=== PATIENT | female | born 1955 | race Two or more races ===

== ENCOUNTER 2024-10-03 02:08 | Emergency (ER) | payer OTHER ==
[~2024-10-03] VITALS: Ht 162.6 cm; Wt 55.0 kg
[2024-10-03 02:20] VITALS: PULSE 69; RESP 13; O2SAT 97
--- NOTE | 2024-10-03 02:39 | ED.PDOC ---
Back pain HPI HPI Comments PT BIBA S/P FALL INJURY TO RT ARM WHILE USING THE RESTROOM THIS MORNING. PT RECENTLY FELL AND FX HER LEFT LEG. NOTEABLE DEFORMITY TO RIGHT ARM, PULSES PRESENT, BRISK CAP REFILL. PT A&OX3, WHICH IS HER BASELINE, ALL VSS, RR EVEN AND UNLABORED ON RA Chief Complaint: Fall Injury Time Seen by MD: 02:14 Reviewed Notes: Nurses Notes, Laserist Notes, Medications, Allergies Allergies: Coded Allergies: Prednisone (Verified Allergy, Unknown, 10/03/24) Information Source: Patient Mode of Arrival: EMS Past Medical History PAST MEDICAL HISTORY: Denies Surgical History: Denies all surgeries ALMOND GRINDER History: No Pertinent ALMOND GRINDER History Family History Family History: Reviewed,noncontributory to illness Social History Smoker: Non-Smoker Alcohol: Denies ETOH Use Drugs: Denies Drug Use Constitutional: denies: chills, diaphoresis, fatigue, fever, malaise, sweats, weakness, others EENTM: denies: blurred vision, double vision, ear bleeding, ear discharge, ear drainage, ear pain, ear ringing, eye pain, eye redness, hearing loss, mouth pain, mouth swelling, nasal discharge, nose bleeding, nose congestion, nose pain, photophobia, tearing, throat pain, throat swelling, voice changes, others Respiratory: denies: cough, hemoptysis, orthopnea, SOB at rest, shortness of breath, SOB with excertion, stridor, wheezing, others Cardiovascular: denies: chest pain, dizzy spells, diaphoresis, Dyspnea on exertion, edema, irregular heart beat, left arm pain, lightheadedness, palpitations, PND, syncope, others Gastrointestinal: denies: abdomen distended, abdominal pain, blood streaked bowels, constipated, diarrhea, dysphagia, difficulty swallowing, hematemesis, melena, nausea, poor appetite, poor fluid intake, rectal bleeding, rectal pain, vomiting, others Genitourinary: denies: abnormal vagina bleeding, burning, dyspareunia, dysuria, flank pain, frequency, hematuria, incontinence, pain, , vagina discharge, urgency, others Neurological: denies: dizziness, fainting, headache, left sided numbness, left sided weakness, numbness, paresthesia, pre-existing deficit, right sided numbness, right sided weakness, seizure, speech problems, tingling, tremors, weakness, others Musculoskeletal: reports: others (Right arm pain); denies: back pain, gout, joint pain, joint swelling, muscle pain, muscle stiffness, neck pain Integumetry: denies: bruises, change in color, change in hair/nails, dryness, laceration, lesions, lumps, rash, wounds, others Allergic/Immunocompromised: denies: Difficulty Healing, Frequent Infections, Hives, Itching, others Hematologic/Lymphatic: denies: anemia, blood clots, easy bleeding, easy bruising, swollen glands, others Endocrine: denies: excessive hunger, excessive sweating, excessive thirst, excessive urination, flushing, intolerance to cold, intolerance to heat, unexplained weight gain, unexplained weight loss, others Psychiatric: denies: anxiety, bipolar disorder, depression, hopeless, panic disorder, schizophrenia, sleepless, suicidal, others Physical Exam General Appearance: No Apparent Distress, Normal HEENT: Normal ENT Inspection, Pharynx Normal, TMs Normal Neck: Full Range of Motion, Non-Tender Respiratory: Chest Non-Tender, Lungs Clear, No Respiratory Distress, Normal Breath Sounds Cardiovascular: No Edema, No JVD, No Murmur, No Gallop, Normal Peripheral Pulses, Regular Rate/Rhythm Breast Exam: Deferred Gastrointestinal: No Organomegaly, Non Tender, No Pulsatile Mass, Normal Bowel Sounds, Soft Genitalia: Deferred Pelvic: Deferred Rectal: Deferred Extremities: Normal capillary refill, Normal inspection, Normal range of motion, Non-tender, No pedal edema Musculoskeletal : Location: Right Extremity Location: Arm (Moderate tenderness palpated over right forearm splint in place strength sensory motion intact positive radial pulse) Apperance: Normal Neurologic: Alert, No Motor Deficits, Normal Affect, Normal Mood, No Sensory Deficits Cerebellar Function: Normal Reflexes: Normal Skin: Dry, Normal Color, Warm Lymphatic: No Adenopathy Was a procedure done? Was a procedure done?: No Back Pain Differential Dx Differential Diagnosis: Fracture, Musculoskeletal Pain, Strain X-Ray, Labs, Meds, VS Vital Signs Date Time Temp Pulse Resp B/P (MAP) Pulse Ox O2 Delivery O2 Flow Rate FiO2 10/03/24 04:24 73 15 125/65 10/03/24 02:20 98.4 69 13 147/62 (90) 97 98.4 10/03/24 02:20 69 13 97 Room Air* 0 21 10/03/24 02:15 98.1 66 18 136/81 (99) 96 98.1 Lab Test 10/03/24 04:10 10/03/24 03:30 Range/Units Urine Color Yellow Yellow Urine Clarity Turbid H Clear Urine pH 5.5 5.0-9.0 Urine Specific [place] 1.024 1.001-1.035 Urine Protein Negative Negative Urine Ketones Negative Negative Urine Blood Negative Negative /uL Urine Nitrite 2+ H Negative Urine Bilirubin Negative Negative Urine Urobilinogen Normal Negative mg/dL Urine Leukocyte Esterase Trace Negative /uL Urine RBC 1 0 - 4 /hpf Urine Microscopic WBC 12 H 0-5 /HPF Urine Squamous Epithelial Cells Mod <5 /hpf Urine Bacteria Few H None Seen /hpf Urine Glucose Normal Normal mg/dL White Blood Count 5.6 4.4-10.8 10^3/uL Red Blood Count 3.76 L 4.0-5.20 10^6/uL Hemoglobin 12.1 L 12.2-16.2 g/dL Hematocrit 34.3 L 36.0-46.0 % Mean Corpuscular Volume 91.0 80.0-100.0 fL Mean Corpuscular Hemoglobin 32.1 H 28.0-32.0 pg Mean Corpuscular Hemoglobin Concent 35.2 32.0-36.0 g/dL Red Cell Distribution Width 13.9 11.8-14.3 % Platelet Count 129 L 140-450 10^3/uL Mean Platelet Volume 5.9 L 6.9-10.8 fL Neutrophils (%) (Auto) 72.2 37.0-80.0 % Lymphocytes (%) (Auto) 16.5 10.0-50.0 % Monocytes (%) (Auto) 10.3 0.0-12.0 % Eosinophils (%) (Auto) 0.8 0.0-7.0 % Basophils (%) (Auto) 0.2 0.0-2.0 % Neutrophils # (Auto) 4.1 1.6-8.6 10 ^3/uL Lymphocytes # (Auto) 0.9 0.4-5.4 10 ^3/uL Monocytes # (Auto) 0.6 0-1.3 10 ^3/uL Eosinophils # (Auto) 0 0-0.8 10 ^3/uL Basophils # (Auto) 0 0-0.2 10 ^3/uL Nucleated Red Blood Cells 0.0 % Sodium Level 147 H 136-145 mmol/L Potassium Level 3.7 3.5-5.1 mmol/L Chloride Level 106 98-107 mmol/L Carbon Dioxide Level 31 20-31 mmol/L Anion Gap 10 5-15 Blood Urea Nitrogen 16 9-23 mg/dL Creatinine 0.78 0.550-1.02 mg/dL Glomerular Filtration Rate Calc 82 >90 mL/min BUN/Creatinine Ratio 20.5 H 10.0-20.0 Serum Glucose 122 H 74-106 mg/dL Calcium Level 9.9 8.7-10.4 mg/dL Total Bilirubin 0.2 0.2-1.0 mg/dL Aspartate Amino Transferase (AST) 12 <34 U/L Alanine Aminotransferase (ALT) < 9 7-40 U/L Alkaline Phosphatase 39 L 46-116 U/L Total Protein 5.8 5.7-8.2 g/dL Albumin 3.7 3.2-4.8 g/dL Current Medications Medications (Trade) Dose Ordered Sig/Anna Route Start Time Stop Time Status Last Admin Acetaminophen/ Hydrocodone Bitart ([place] 5/325MG Tab) 1 tab ONCE ONCE PO 10/03/24 03:00 10/03/24 03:01 DC 10/03/24 02:56 Morphine Sulfate 2 mg ONCE ONCE IV 10/03/24 04:30 10/03/24 04:31 DC 10/03/24 04:24 Ondansetron HCl (Zofran) 4 mg ONCE ONCE IV 10/03/24 04:30 10/03/24 04:31 DC 10/03/24 04:23 X-Ray, Labs, Meds, VS Comment IMAGING: X-RAY RIGHT HUMERUS FINDINGS/IMPRESSION: : Severely displaced partially overriding comminuted fracture of the proximal humeral diaphysis. There is lateral displacement by 1 full shaft width and approximately 16 degrees medial angulation. Approximately 3.2 cm overlap of fracture fragments. LABS: CBC, CMP, UA pending MEDICATIONS: [place] 5 mg p.o. Morphine 2 mg IV push PLAN: Will admit for severely displaced comminuted fracture of the proximal humeral diaphysis, admit for ortho surgical consult, pain management. Time of 1ST Reevaluation: 02:14 Reevaluation 1ST: Unchanged Time of 2ND Reevaluation: 04:30 Reevaluation 2ND: Improved Patient Education/Counseling: Diagnosis, Treatment, Prognosis, Need For Follow Up Family Education/Counseling: Diagnosis, Treatment, Prognosis, Need For Follow Up SEPSIS Sepsis Screen Date sepsis recognized/suspect: Oct 03, 2024 Time Sepsis recognized/suspect: 214 Recent Procedure: No On Antibiotic Therapy: No Respiratory Rate >20: No Heart Rate >90: No Temp<36 C (96.8 F) or >38.3 C: No SBP <90 or MAP <65 mmHG: No New Acute Mental Status Change: No Is the patient on CPAP, BIPAP,: No Physician Orders R Forearm Xray (10/03/24 02:14) R Humerus Xray (10/03/24 02:14) * Orthopedic Consult (10/03/24 04:00) Splints (10/03/24 ) Vital Signs Date Time Temp Pulse Resp B/P (MAP) Pulse Ox O2 Delivery O2 Flow Rate FiO2 10/03/24 04:24 73 15 125/65 10/03/24 02:20 98.4 69 13 147/62 (90) 97 98.4 10/03/24 02:20 69 13 97 Room Air* 0 21 10/03/24 02:15 98.1 66 18 136/81 (99) 96 98.1 Laboratory Tests Test 10/03/24 03:30 White Blood Count 5.6 10^3/uL (4.4-10.8) Medications Medications Dose Ordered Sig/Anna Route Start Time Stop Time Status Last Admin Dose Admin Acetaminophen/ Hydrocodone Bitart 1 tab ONCE ONCE PO 10/03/24 03:00 10/03/24 03:01 DC 10/03/24 02:56 Morphine Sulfate 2 mg ONCE ONCE IV 10/03/24 04:30 10/03/24 04:31 DC 10/03/24 04:24 Ondansetron HCl 4 mg ONCE ONCE IV 10/03/24 04:30 10/03/24 04:31 DC 10/03/24 04:23 Departure 1 Departure Time of Disposition: 03:21 Impression: Primary Impression: Fracture, humerus closed, shaft Qualified Codes: S42.301A - Unspecified fracture of shaft of humerus, right arm, initial encounter for closed fracture Additional Impressions: Status post fall Intractable pain Disposition: ADMITTED INPATIENT Condition: Stable Discharged With: Spouse Critical Care Note Critical Care Time?: No Stability Stability form required: MARIA Terry Oct 03, 2024 02:39
[2024-10-03] MEDS: HYDROcodone-ACET 5/325MG TAB PO ONE (02:56)
--- NOTE | 2024-10-03 03:31 | DVH ---
CLINICAL INDICATION: S/P FALL INJURY TECHNIQUE: XY R HUMERUS XRAY Comparison: None FINDINGS/IMPRESSION: : Severely displaced partially overriding comminuted fracture of the proximal humeral diaphysis. There is lateral displacement by 1 full shaft width and approximately 16 degrees medial angulation. Approxi mately 3.2 cm overlap of fracture fragments. Visualized portions of the right lung are clear. The soft tissue elements are grossly intact.
--- NOTE | 2024-10-03 03:31 | DVH ---
CLINICAL INDICATION: S/P FALL INJURY TECHNIQUE: XY R FOREARM XRAY Comparison: None FINDINGS/IMPRESSION: : There is no evidence of acute fracture or dislocation. Soft tissues are unremarkable.
[2024-10-03 03:51] LABS: Basophils # (auto) 0 10 ^3/uL (0-0.2); Basophils % (auto) 0.2 % (0.0-2.0); Eosinophils # (auto) 0 10 ^3/uL (0-0.8); Eosinophils % (auto) 0.8 % (0.0-7.0); Hematocrit 34.3 % (36.0-46.0); Hemoglobin 12.1 g/dL (12.2-16.2); Lymphocytes # (auto) 0.9 10 ^3/uL (0.4-5.4); Lymphocytes % (auto) 16.5 % (10.0-50.0); Mean Corpuscular Hemoglobin 32.1 pg (28.0-32.0); Mean Corpuscular Hgb Conc. 35.2 g/dL (32.0-36.0); Monocytes # (auto) 0.6 10 ^3/uL (0-1.3); Monocytes % (auto) 10.3 % (0.0-12.0); Neutrophils # (auto) 4.1 10 ^3/uL (1.6-8.6); Neutrophils % (auto) 72.2 % (37.0-80.0); Platelet Count (auto) 129 10^3/uL (140-450); Red Blood Cells 3.76 10^6/uL (4.0-5.20); Red Cell Distribution Width 13.9 % (11.8-14.3); White Blood Cell 5.6 10^3/uL (4.4-10.8)
[2024-10-03 04:11] LABS: Albumin 3.7 g/dL (3.2-4.8); Anion Gap 10 (5-15); Aspartate Aminotransferase 12 U/L (<34); BUN/Creatinine Ratio 20.5 (10.0-20.0); Blood Urea Nitrogen 16 mg/dL (9-23); Calcium 9.9 mg/dL (8.7-10.4); Carbon Dioxide 31 mmol/L (20-31); Chloride 106 mmol/L (98-107); Potassium 3.7 mmol/L (3.5-5.1); Total Protein 5.8 g/dL (5.7-8.2)
[2024-10-03 04:18] LABS: Alanine Aminotransferase < 9 U/L (7-40); Alkaline Phosphatase 39 U/L (46-116); Bilirubin, Total 0.2 mg/dL (0.2-1.0); Glucose 122 mg/dL (74-106); Sodium 147 mmol/L (136-145)
[2024-10-03] MEDS: ONDANSETRON HCL 4 MG/2 ML VIAL IV ONE (04:23)
[2024-10-03] MEDS: MORPHINE SULFATE INJ 2 MG/ml SYRG IV ONE (04:24)
[2024-10-03 04:31] LABS: Urine Bacteria FEW /hpf (None Seen); Urine Blood Negative /uL (Negative); Urine Clarity Turbid (Clear); Urine Color Yellow (Yellow); Urine Protein, UAD Negative (Negative); Urine Specific Gravity 1.024 (1.001-1.035); Urine Squamous Epithelial Cell MOD /hpf (<5); Urine Urobilinogen Normal (Negative); Urine WBC 12 /HPF (0-5); Urine pH 5.5 (5.0-9.0)
[2024-10-03] MEDS: cefTRIAXone 1GM/50ML D5W 50 ML IV ONE (06:34)
[2024-10-03 07:30] VITALS: PULSE 99; RESP 19; O2SAT 96
[2024-10-03 13:23] VITALS: BP 107/67; RESP 15; TEMP 98.5; O2SAT 92
[2024-10-03] MEDS: HYDROcodone-ACET 10/325MG TAB PO ONE (13:49)
[2024-10-03 13:54] VITALS: PULSE 92
== END 2024-10-03 13:40 | disposition short-term general hospital (02) ==
LOC: ER 02:08 → EDBD 02:08 → ER 13:40
DX: S42.301A Unspecified fracture of shaft of humerus, right arm, initial encounter for closed fracture (principal); Z88.8 Allergy status to other drugs, medicaments and biological substances; W18.11XA Fall from or off toilet without subsequent striking against object, initial encounter; Y93.89 Activity, other specified; Y92.091 Bathroom in other non-institutional residence as the place of occurrence of the external cause; Y99.8 Other external cause status
CPT/HCPCS: 29105; 36415; 73060; 73090; 80053; 81001; 85025; 96365; 96375; 99285; J0696; J2270; J2405